=== PATIENT | female | born 1990 | race Caucasian/White ===

== ENCOUNTER 2016-08-21 07:30 | Emergency (ER) | payer OTHER ==
[2016-08-21 07:38] VITALS: BP 125/71; PULSE 99; TEMP 98; BMI 45.1
--- NOTE | 2016-08-21 08:33 | PDOC ---
History of Present Illness <Catina Frank - Last Filed: 08/21/16 08:59> - General History Source: Patient Exam Limitations: No Limitations - History of Present Illness Initial Comments: 25 yo F with h/o asthma never intubated and not on steroid presented to the ED with shortness of breath x 2 hours. She stated she felt short of breath at 6: 30am and lasted for 1 hour but right now she's feeling well. Denies fever, chills, chest pain, dizziness, urinary or bowel symptoms. Timing/Duration: reports: this morning Severity: reports: mild Possible Cause: Yes: allergen exposure Associated Symptoms: reports: cough. denies: chest pain/soreness, dizziness, fever/chills, headache <Guilherme Bird - Last Filed: 08/21/16 09:08> - General Chief Complaint: Asthma Stated Complaint: ASTHMA Time Seen by Provider: 08/21/16 07:50 Past History <Catina Frank - Last Filed: 08/21/16 08:59> - Travel Traveled outside of the country in the last 30 days: No Close contact w/someone who was outside of country & ill: No - Past Medical History Asthma: Yes - Immunization History Td Vaccination: Yes TDAP Vaccination: Yes Immunization Up to Date: Yes - Psycho/Social/Smoking Cessation Hx Anxiety: No Suicidal Ideation: No Smoking Status: No Smoking History: Never smoked Years of Tobacco Use: 0 Have you smoked in the past 12 months: No Number of Cigarettes Smoked Daily: 0 Cigars Per Day: 0 Hx Alcohol Use: Yes (social) Drug/Substance Use Hx: No Substance Use Type: None Hx Substance Use Treatment: No <Guilherme Bird - Last Filed: 08/21/16 09:08> - Past Medical History Allergies/Adverse Reactions: Allergies Allergy/AdvReac Type Severity Reaction Status Date / Time No Known Drug Allergies Allergy Verified 08/21/16 07:38 Seafood Allergy Uncoded 08/21/16 07:38 Home Medications: Ambulatory Orders Ibuprofen [Motrin -] 400 mg PO Q6H PRN #28 tablet 01/20/14 Albuterol 0.083% Nebulizer Kenia [Ventolin 0.083% Nebulizer Soln -] 1 neb NEB Q4H PRN 05/01/14 Albuterol Sulfate Inhaler - [Ventolin HFA Inhaler -] 1 - 2 inh PO Q4H #1 inhaler 05/07/14 Budesonide/Formeterol Fumarate [SYMBICORT 160/4.5mcg -] 2 inh PO BID #1 cannister 05/07/14 Montelukast Na [Singulair -] 10 mg PO HS #30 tab.chew 05/07/14 Prednisone [Deltasone -] 10 mg PO ASDIR #21 tab 05/07/14 Respiratory Specific PMHX - Complaint Specific PMHX Angina: No Bronchitis: No Pulmonary Embolus: No TB (Tuberculosis): No <Guilherme Bird - Last Filed: 08/21/16 09:08> Review of Systems - Review of Systems Able to Perform ROS?: Yes Is the patient limited Botswanan proficient: No Constitutional: No: Chills, Diaphoresis, Fever HEENTM: No: Throat Pain, Difficulty Swallowing Respiratory: Yes: Cough, Shortness of Breath (resolved) ABD/GI: No: Abdominal Distended, Nausea, Vomiting <Guilherme Bird - Last Filed: 08/21/16 09:08> *Physical Exam - Vital Signs Last Vital Signs Temp Pulse Resp BP Pulse Ox 98 F 99 H 20 125/71 95 08/21/16 07:35 08/21/16 07:35 08/21/16 07:35 08/21/16 07:35 08/21/16 07:35 <Catina Frank - Last Filed: 08/21/16 08:59> - Vital Signs Last Vital Signs Temp Pulse Resp BP Pulse Ox 98 F 99 H 20 125/71 95 08/21/16 07:35 08/21/16 07:35 08/21/16 07:35 08/21/16 07:35 08/21/16 07:35 - Physical Exam General Appearance: No: Apparent Distress HEENT: positive: Nasal Congestion. negative: Pharyngeal Erythema, Sinus Tenderness Neck: positive: Trachea midline, Supple Respiratory/Chest: positive: Wheezing Cardiovascular: positive: Regular Rhythm, S1, S2, Tachycardia <Guilherme Bird - Last Filed: 08/21/16 09:08> *DC/Admit/Observation/Transfer - Discharge Dispostion Admit: No <Catina Frank - Last Filed: 08/21/16 08:59> <Guilherme Bird - Last Filed: 08/21/16 09:08> Diagnosis at time of Disposition: Acute asthma exacerbation Qualifiers: Asthma severity: unspecified severity Qualified Code(s): J45.901 - Unspecified asthma with (acute) exacerbation - Discharge Dispostion Disposition: HOME Condition at time of disposition: Improved - Patient Instructions Printed Discharge Instructions: DI for Asthma -- Adult
--- NOTE | 2016-08-21 08:59 | PDOC ---
Attending Attestation - Resident Resident Name: Guilherme Bird - ED Attending Attestation I have performed the following: I have examined & evaluated the patient, The case was reviewed & discussed with the resident, I agree w/resident's findings & plan, Exceptions are as noted - HPI HPI: 25 yo F history asthma presents with asthma exacerbation. She states that her allergies have been worse with the recent weather changes, has had clear nasal drainage. She states that she was wheezing this morning, took a neb treatment which did not help. Subsequently she used her rescue inhaler, which also did not help. She takes QVar daily, has not recently changed medication. No recent illness. She states that upon arrival in the ED, she feels better. No complaints at present. - Physicial Exam PE: GENERAL: Awake, alert, and fully oriented, in no acute distress HEAD: No signs of trauma EYES: PERRLA, EOMI, sclera anicteric, conjunctiva clear ENT: Auricles normal inspection, hearing grossly normal, nares patent, oropharynx clear without exudates. Moist mucosa NECK: Normal ROM, supple, no lymphadenopathy, JVD, or masses LUNGS: Breath sounds equal, clear to auscultation bilaterally. No wheezes, and no crackles HEART: Regular rate and rhythm, normal S1 and S2, no murmurs, rubs or gallops ABDOMEN: Soft, nontender, normoactive bowel sounds. No guarding, no rebound. No masses EXTREMITIES: Normal range of motion, no edema. No clubbing or cyanosis. No cords, erythema, or tenderness NEUROLOGICAL: Cranial nerves II through XII grossly intact. Normal speech, normal gait SKIN: Warm, Dry, normal turgor, no rashes or lesions noted. - Medical Decision Making Pt asymptomatic at present. Lungs clear. No need for further intervention. She does not need any refills. No indication for any steroids at present. Stable for DC home.
== END 2016-08-21 09:05 | disposition home or self-care (01) ==
LOC: JER 07:30
DX: J45.901 Unspecified asthma with (acute) exacerbation (principal)
CPT/HCPCS: 99281-25

== ENCOUNTER 2017-01-28 16:13 | Emergency (ER) | payer SELFPAY ==
[2017-01-28 16:27] VITALS: BP 134/76; PULSE 78; TEMP 98.5; BMI 40.7
[2017-01-28] MEDS ORDERED: DIPHTH,PERTUSS(ACELL),TET 0.5 ML DISP.SYRIN IM ONE (17:05)
--- NOTE | 2017-01-28 17:31 | PDOC ---
History of Present Illness - General Chief Complaint: Bite Stated Complaint: SWOLLEN HAND Time Seen by Provider: 01/28/17 16:52 History Source: Patient, Parent(s) Exam Limitations: No Limitations - History of Present Illness Initial Comments: 01/28/17 17:03 Here for evaluation of bee sting to right hand at the third digit volar aspect. Incident occurred last night, noted stinger in wound and removed last night. States since that time hand has persisted swelling, tenderness, and mild immobility secondary to the inflammation. Denies fever, numbness or tingling to hand, no other injury. No history of skin infections, MRSA or other bacterial problems 01/28/17 17:05 01/28/17 17:05 Occurred: reports: yesterday Severity: reports: mild Pain Location: reports: upper extremity (right hand) Modifying Factors: improves with: cold therapy Associated Symptoms (Fall): denies symptoms Past History - Travel Traveled outside of the country in the last 30 days: No Close contact w/someone who was outside of country & ill: No - Past Medical History Allergies/Adverse Reactions: Allergies Allergy/AdvReac Type Severity Reaction Status Date / Time No Known Drug Allergies Allergy Verified 01/28/17 16:24 Seafood Allergy Uncoded 01/28/17 16:24 Home Medications: Ambulatory Orders Ibuprofen [Motrin -] 400 mg PO Q6H PRN #28 tablet 01/20/14 Albuterol 0.083% Nebulizer Kenia [Ventolin 0.083% Nebulizer Soln -] 1 neb NEB Q4H PRN 05/01/14 Albuterol Sulfate Inhaler - [Ventolin HFA Inhaler -] 1 - 2 inh PO Q4H #1 inhaler 05/07/14 Budesonide/Formeterol Fumarate [SYMBICORT 160/4.5mcg -] 2 inh PO BID #1 cannister 05/07/14 Montelukast Na [Singulair -] 10 mg PO HS #30 tab.chew 05/07/14 Prednisone [Deltasone -] 10 mg PO ASDIR #21 tab 05/07/14 Cephalexin Monohydrate [Keflex -] 500 mg PO Q8H #21 capsule 01/28/17 Asthma: Yes - Immunization History Td Vaccination: Yes TDAP Vaccination: Yes Immunization Up to Date: Yes - Suicide/Smoking/Psychosocial Hx Smoking Status: No Smoking History: Former smoker Years of Tobacco Use: 0 Have you smoked in the past 12 months: No Number of Cigarettes Smoked Daily: 0 Cigars Per Day: 0 Information on smoking cessation initiated: No Hx Alcohol Use: Yes (social) Drug/Substance Use Hx: No Substance Use Type: None Hx Substance Use Treatment: No Trauma Specific PMHX - Complaint Specific PMHX Back Injury: No Neck Injury: No Review of Systems - Review of Systems Able to Perform ROS?: Yes Is the patient limited Syriac proficient: Yes Constitutional: Yes: See HPI. No: Symptoms Reported, Chills, Fever, Malaise HEENTM: Yes: See HPI. No: Symptoms Reported, Throat Pain, Throat Swelling, Difficulty Swallowing, Mouth Swelling Respiratory: Yes: See HPI. No: Symptoms reported, Cough, Shortness of Breath, Wheezing Musculoskeletal: Yes: See HPI. No: Symptoms Reported Integumentary: Yes: Symptoms Reported, See HPI, Lesions (to volar aspect of left finger) All Other Systems: Reviewed and Negative *Physical Exam - Vital Signs Last Vital Signs Temp Pulse Resp BP Pulse Ox 98.5 F 78 19 134/76 98 01/28/17 16:25 01/28/17 16:25 01/28/17 16:25 01/28/17 16:25 01/28/17 16:25 - Physical Exam General Appearance: Yes: Nourished, Appropriately Dressed, Apparent Distress, Mild Distress HEENT: positive: LOS, Normal ENT Inspection, TMs Normal, Pharynx Normal Neck: positive: Tender, Supple, Other (palpable spasm, reproduced tenderness along the paravertebral spinous muscles) Respiratory/Chest: positive: Lungs Clear Musculoskeletal: positive: Normal Inspection Extremity: positive: Normal Capillary Refill, Normal Inspection, Normal Range of Motion (but painful with flexion and extension. No obvious foreign body noted in wound site, no streaking, appearance of hand is erythematous and appears more inflamed versus cellulitic.) Integumentary: positive: Normal Color, Dry, Warm Neurologic: positive: silver wrapper II-XII NML intact, Fully Oriented, Alert, Normal Mood/ Affect, Normal Response, Motor Strength 5/5 Progress Note - Progress Note Progress Note: Bee sting with postinflammatory changes. Patient advised to cellulitis or infectiousness and given prescription for prophylactic Keflex *DC/Admit/Observation/Transfer Diagnosis at time of Disposition: Bee sting Qualifiers: Encounter type: initial encounter Injury intent: undetermined intent Qualified Code(s): T63.444A - Toxic effect of venom of bees, undetermined, initial encounter - Discharge Dispostion Disposition: HOME Condition at time of disposition: Stable Admit: No - Prescriptions Prescriptions: Cephalexin Monohydrate [Keflex -] 500 mg PO Q8H #21 capsule - Patient Instructions Printed Discharge Instructions: How to Care for an Insect Bite or Sting Additional Instructions: Rest, keep hand elevated Bacitracin ointment and a Band-Aid twice a day until healed May continue using ice packs for swelling and inflammation Tylenol or Motrin for pain relief and anti-inflammatory relief Start antibiotic, Keflex 500 mg one pill 3 times a day for one week if hand becomes infected and seek medical attention for evaluation if necessary to start antibiotic. - Post Discharge Activity Forms/Work/School Notes: Back to Work
== END 2017-01-28 17:35 | disposition home or self-care (01) ==
LOC: JERFT 16:13
DX: T63.441A Toxic effect of venom of bees, accidental (unintentional), initial encounter (principal); Y92.89 Other specified places as the place of occurrence of the external cause; R60.0 Localized edema
CPT/HCPCS: 90715; 99281-25

== ENCOUNTER 2017-05-26 18:03 | Emergency (ER) | payer SELFPAY ==
[2017-05-26 19:05] VITALS: BP 130/84; PULSE 90; TEMP 97.4; BMI 45.1
--- NOTE | 2017-05-26 19:53 | PDOC ---
History of Present Illness - General Chief Complaint: Ear Problem Stated Complaint: EAR PAIN/DIZZINESS Time Seen by Provider: 05/26/17 19:30 History Source: Patient Exam Limitations: No Limitations - History of Present Illness Initial Comments: 05/26/17 19:49 26-year-old female presents the ED with complaints of right ear muffled sound for the past 2 days Associated with intermittent dizziness when standing. Patient denies fever, chills decreased hearing, headache, injury, dental pain, neck pain.Pt also denies nasal congestion or recent URI Timing/Duration: intermittent Severity: mild Associated Symptoms: reports: denies symptoms Past History - Travel Traveled outside of the country in the last 30 days: No - Past Medical History Allergies/Adverse Reactions: Allergies Allergy/AdvReac Type Severity Reaction Status Date / Time No Known Drug Allergies Allergy Verified 05/26/17 19:05 Seafood Allergy Uncoded 05/26/17 19:05 Home Medications: Ambulatory Orders Albuterol Sulfate Inhaler - [Ventolin HFA Inhaler -] 1 - 2 inh PO Q4H #1 inhaler 05/07/14 Asthma: Yes CVA: No COPD: No - Immunization History Td Vaccination: Yes TDAP Vaccination: Yes Immunization Up to Date: Yes - Suicide/Smoking/Psychosocial Hx Smoking Status: No Smoking History: Never smoked Years of Tobacco Use: 0 Have you smoked in the past 12 months: No Number of Cigarettes Smoked Daily: 0 Cigars Per Day: 0 Information on smoking cessation initiated: No Hx Alcohol Use: No Drug/Substance Use Hx: No Substance Use Type: None Hx Substance Use Treatment: No Patient Lives Alone: No Lives with/in: parents Review of Systems - Review of Systems Able to Perform ROS?: Yes Constitutional: No: Symptoms Reported HEENTM: Yes: Ear Pain Respiratory: No: Symptoms reported Cardiac (ROS): No: Symptoms Reported ABD/GI: No: Symptoms Reported : No: Symptoms Reported Musculoskeletal: No: Symptoms Reported Integumentary: No: Symptoms Reported Neurological: Yes: Dizziness *Physical Exam - Vital Signs Last Vital Signs Temp Pulse Resp BP Pulse Ox 97.4 F L 90 18 130/84 100 05/26/17 19:02 05/26/17 19:02 05/26/17 19:02 05/26/17 19:02 05/26/17 19:02 - Physical Exam General Appearance: Yes: Nourished, Appropriately Dressed. No: Apparent Distress HEENT: positive: EOMI, LOS, Pharynx Normal. negative: TMs Normal (minimal clear fluid behind the right TM> No sign of infection) Neck: positive: Supple. negative: Lymphadenopathy (R), Lymphadenopathy (L) Integumentary: positive: Normal Color, Warm, Moist Neurologic: positive: Motor Strength 5/5 (ambulatory) Medical Decision Making - Medical Decision Making 05/26/17 19:53 Patient complains of feeling of water behind her eardrums and intermittent dizziness with movement. Patient on exam had minimal clear fluid behind TM with no other acute findings. Patient recommended to protect the ear and keep area dry and not allowing water to go any nor uses earbuds in her ears *DC/Admit/Observation/Transfer Diagnosis at time of Disposition: Fluid level behind tympanic membrane of right ear - Discharge Dispostion Disposition: HOME Condition at time of disposition: Good - Referrals - Patient Instructions Printed Discharge Instructions: DI for Ear Pain-Adult Additional Instructions: I recommend to protect the ear and keep area dry and not allowing water to go in ear nor use earbuds in ears - Post Discharge Activity
== END 2017-05-26 20:00 | disposition home or self-care (01) ==
LOC: JERFT 18:03
DX: H93.8X1 Other specified disorders of right ear (principal)
CPT/HCPCS: 99281-25

== ENCOUNTER 2017-09-17 23:50 | Emergency (ER) | payer SELFPAY ==
--- NOTE | 2017-09-18 00:34 | PDOC ---
History of Present Illness - General History Source: Patient, Old Records Exam Limitations: No Limitations - History of Present Illness Initial Comments: 09/18/17 01:14 Patient is a 26 year old female with a significant past medical history of asthma who presents to the ED with complaints of asthma exacerbation that began just prior to arrival. Patient reports experiencing cold like like symptoms earlier this week that she states has since subsided and is recently only experiencing asthmatic symptoms. She reports using her nebulizer at 11pm with no relief, prompting her to come into the ED for further evaluation. Denies chest pain, coughing. Denies nausea, vomiting. Denies contact with sick individuals out of state travelling. Denies any other symptoms. Allergies: NKDA, Seafood Social history: Lives with mother. No smoking. No alcohol. No illicit drugs. Surgical history: None PMD: None <Pancho Carter - Last Filed: 09/18/17 01:14> <Li Garcias - Last Filed: 09/18/17 01:32> <Mildred Raman - Last Filed: 09/18/17 04:32> - General Stated Complaint: ASTHMA Time Seen by Provider: 09/18/17 00:25 Past History <Pancho Carter - Last Filed: 09/18/17 01:14> <Li Garcias - Last Filed: 09/18/17 01:32> - Past Medical History Asthma: Yes CVA: No COPD: No - Immunization History Td Vaccination: Yes TDAP Vaccination: Yes Immunization Up to Date: Yes - Suicide/Smoking/Psychosocial Hx Smoking Status: No Smoking History: Never smoked Years of Tobacco Use: 0 Have you smoked in the past 12 months: No Number of Cigarettes Smoked Daily: 0 Cigars Per Day: 0 Hx Alcohol Use: No Drug/Substance Use Hx: No Substance Use Type: None Hx Substance Use Treatment: No <Mildred Raman - Last Filed: 09/18/17 04:32> - Past Medical History Allergies/Adverse Reactions: Allergies Allergy/AdvReac Type Severity Reaction Status Date / Time No Known Drug Allergies Allergy Verified 09/18/17 00:39 Seafood Allergy Uncoded 09/18/17 00:39 Home Medications: Ambulatory Orders Albuterol Sulfate Inhaler - [Ventolin HFA Inhaler -] 1 - 2 inh PO Q4H #1 inhaler 05/07/14 Methylprednisolone [Medrol Dose Brad] 4 mg PO ASDIR #21 tablet 09/18/17 Review of Systems - Review of Systems Able to Perform ROS?: Yes Comments:: 09/18/17 01:14 GENERAL/CONSTITUTIONAL: No fever or chills. No weakness. HEAD, EYES, EARS, NOSE AND THROAT: No change in vision. No ear pain or discharge. No sore throat. CARDIOVASCULAR: +Shortness of breath No chest pain RESPIRATORY: No cough, wheezing, or hemoptysis. GASTROINTESTINAL: No nausea, vomiting, diarrhea or constipation. GENITOURINARY: No dysuria, frequency, or change in urination. MUSCULOSKELETAL: No joint or muscle swelling or pain. No neck or back pain. SKIN: No rash NEUROLOGIC: No headache, vertigo, loss of consciousness, or change in strength/ sensation. ENDOCRINE: No increased thirst. No abnormal weight change. HEMATOLOGIC/LYMPHATIC: No anemia, easy bleeding, or history of blood clots. ALLERGIC/IMMUNOLOGIC: No hives or skin allergy. <Pancho Carter - Last Filed: 09/18/17 01:14> *Physical Exam - Vital Signs Last Vital Signs Temp Pulse Resp BP Pulse Ox 97.9 F 91 H 18 117/57 96 09/18/17 00:39 09/18/17 00:39 09/18/17 00:39 09/18/17 00:39 09/18/17 00:39 <Pancho Carter - Last Filed: 09/18/17 01:14> - Vital Signs Last Vital Signs Temp Pulse Resp BP Pulse Ox 97.9 F 91 H 18 117/57 96 09/18/17 00:39 09/18/17 00:39 09/18/17 00:39 09/18/17 00:39 09/18/17 00:39 - Physical Exam Comments: 09/18/17 01:29 GENERAL: Awake, alert, and fully oriented, in no acute distress HEAD: No signs of trauma EYES: PERRLA, EOMI, sclera anicteric, conjunctiva clear ENT: Auricles normal inspection, hearing grossly normal, nares patent, oropharynx clear without exudates. Moist mucosa NECK: Normal ROM, supple, no lymphadenopathy, JVD, or masses LUNGS: Moving air. Breath sounds equal, clear to auscultation bilaterally. No wheezes, and no crackles HEART: Regular rate and rhythm, normal S1 and S2, no murmurs, rubs or gallops ABDOMEN: Soft, nontender, normoactive bowel sounds. No guarding, no rebound. No masses EXTREMITIES: Normal range of motion, no edema. No clubbing or cyanosis. No cords, erythema, or tenderness NEUROLOGICAL: Cranial nerves II through XII grossly intact. Normal speech. SKIN: (+) eczema noted on lower and upper extremities. Warm, Dry, normal turgor. No lesions noted. <Li Garcias - Last Filed: 09/18/17 01:32> ED Treatment Course - Medications Given in the ED: ED Medications Discontinued Medications Generic Name Dose Route Start Last Admin Trade Name Freq PRN Reason Stop Dose Admin Dexamethasone Sodium Phosphate 10 mg 09/18/17 01:00 09/18/17 00:59 Decadron Injection - IVPUSH 09/18/17 01:01 10 mg ONCE ONE Administration <Pancho Carter - Last Filed: 09/18/17 01:14> - Medications Given in the ED: ED Medications Discontinued Medications Generic Name Dose Route Start Last Admin Trade Name Freq PRN Reason Stop Dose Admin Dexamethasone Sodium Phosphate 10 mg 09/18/17 01:00 09/18/17 00:59 Decadron Injection - IVPUSH 09/18/17 01:01 10 mg ONCE ONE Administration <Li Garcias - Last Filed: 09/18/17 01:32> Medical Decision Making - Medical Decision Making 09/18/17 04:31 Pt comes with asthma exacerbation. CXR is normal. Pulsox 97% after ambulating about the ER. Pt is improved after duoneb and decadron, terbutaline and more duoneb. 09/18/17 04:32 Stable for d/c/home <Mildred Raman - Last Filed: 09/18/17 04:32> *DC/Admit/Observation/Transfer - Attestations Scribe Attestion: 09/18/17 01:15 Documentation prepared by Pancho Carter, acting as medical sales representative for Mildred Raman MD/DO. <Pancho Carter - Last Filed: 09/18/17 01:14> - Attestations Scribe Attestion: 09/18/17 01:30 Documentation prepared by Li Garcias, acting as medical sales representative for Mildred Raman MD. <Li Garcias - Last Filed: 09/18/17 01:32> - Discharge Dispostion Decision to Admit order: No <Mildred Raman - Last Filed: 09/18/17 04:32> Diagnosis at time of Disposition: Asthma attack - Discharge Dispostion Disposition: HOME Condition at time of disposition: Improved - Prescriptions Prescriptions: Methylprednisolone [Medrol Dose Brad] 4 mg PO ASDIR #21 tablet - Patient Instructions Printed Discharge Instructions: Asthma -- Adult - Post Discharge Activity Forms/Work/School Notes: Back to Work
[2017-09-18 00:40] VITALS: BP 117/57; PULSE 91; TEMP 97.9; BMI 40.7
[2017-09-18] MEDS ORDERED: DEXAMETHASONE 4 MG TABLET (FP) PO ONE (00:45)
[2017-09-18] MEDS ORDERED: DEXAMETHASONE SOD PHOSPHATE 10 MG/1 ML VIAL ONE (00:52)
[2017-09-18] MEDS ORDERED: DEXAMETHASONE SOD PHOSPHATE 10 MG/1 ML VIAL IVPUSH ONE (01:00)
[2017-09-18] MEDS ORDERED: ALBUTEROL SO4 2.5/IPRATROPIUM 0.5 INH SOL 3 ML VIAL.NEB. NEB ONE ×3 (01:15→03:22)
[2017-09-18] MEDS ORDERED: TERBUTALINE SULFATE 1 MG/1 ML VIAL SQ ONE ×2 (03:22→03:23)
== END 2017-09-18 03:45 | disposition home or self-care (01) ==
LOC: JER 23:50
PROC: 3E0F7GC Introduction of Other Therapeutic Substance into Respiratory Tract, Via Natural or Artificial Opening (ICD-10-PCS; principal; 2017-09-17)
PROC: 3E0F7GC Introduction of Other Therapeutic Substance into Respiratory Tract, Via Natural or Artificial Opening (ICD-10-PCS; 2017-09-17)
PROC: 3E0333Z Introduction of Anti-inflammatory into Peripheral Vein, Percutaneous Approach (ICD-10-PCS; 2017-09-17)
PROC: 3E023GC Introduction of Other Therapeutic Substance into Muscle, Percutaneous Approach (ICD-10-PCS; 2017-09-17)
DX: J45.901 Unspecified asthma with (acute) exacerbation (principal); R21 Rash and other nonspecific skin eruption
CPT/HCPCS: 71046-TC-FY; 84703; 99281-25; J1100; J7620